=== PATIENT | female | born 1985 | race Caucasian/White ===

== ENCOUNTER 2018-02-14 09:04 | Emergency (ER) | payer MEDICAID ==
[~2018-02-14] VITALS: Ht 160 cm; Wt 90.7 kg
[2018-02-14 09:13] VITALS: Ht 160 cm; Wt 90.7 kg
[2018-02-14 11:28] VITALS: BP 128/80
== END 2018-02-14 11:28 | disposition home or self-care (01) ==
LOC: ED 09:04
DX: S20.219A Contusion of unspecified front wall of thorax, initial encounter (principal); V49.88XA Car occupant (driver) (passenger) injured in other specified transport accidents, initial encounter; Y93.89 Activity, other specified; Y92.89 Other specified places as the place of occurrence of the external cause; Y99.8 Other external cause status
CPT/HCPCS: J1885